=== PATIENT | female | born 1930 | race Caucasian/White ===

== ENCOUNTER 2021-10-24 13:37 | Emergency (ER) | payer OTHER ==
[~2021-10-24] VITALS: Ht 170.2 cm; Wt 57.6 kg
--- NOTE | ~2021-10-24 | EMS ---
[address] [address] EMS Patient Care Report Name: CRYSTAL FINLEY Room #: REG JOHANNA Morgan#: [id number] Admission: 10/24/21 Attend Phys: Discharge: Date of : [birth year] Report #: [id number] THIS REPORT FOR: //name// Report Transmitted: 10/24/2021 20:54 EMS Care Summary [facility] MED-ACT Incident [id number] @ 10/24/2021 12:53 Incident Location [address] [place] [address] Patient CRYSTAL FINLEY Female, 89 Years 1930 Patient Address [address] [place] [address] Patient History Dementia, Patient Allergies Sulfa,Other drug allergy, Patient Medications Donepezil, Naproxen, Loratadine, Acetaminophen, Estradiol, Famotidine, Duloxetine, Spironolactone, Ondansetron, Chief Complaint Increased confusion Disposition Transported No Lights/[place] Dispatch Reason Unconscious/Fainting Transported To [facility] Narrative M1144 found the pt lying in bed with S47 at care. Report from S47 and staff [address] [address] EMS Patient Care Report Name: CRYSTAL FINLEY Room #: REG JOHANNA Morgan#: [id number] Admission: 10/24/21 Attend Phys: Discharge: Date of : [birth year] Report #: [id number] was that the pt has had an increase in confusion and family wanted the pt sent out to the hospital for evaluation. Staff reported that the pt's recently and ever since then the pt's had a decline. Staff stated that they did some labs, sent out for a UA, and did a rapid COVID test and they all came back negative. EMS made contact with the pt's son who stated that the pt is normally "pleasantly demented". He stated that the pt has been calling him and his sister asking where she was, saying that she was in the house that she lived in for 15 years, and talking about old high school friends. Staff also reported that the pt has been calling her asking where she was. The pt stated that she has some hip pain. The pt had no complaints of chest pain, shortness of breath, headaches, blurred vision, nausea/vomiting, Diarrhea, abdominal pain, recent illness, or recent trauma. The pt was transported to [facility] per the pt's son and daughters request. The pt had no new complaints en route and with hand off to [facility] ED RN. The pt was transferred to ED room 5 via a sheet drag from EMS Cot to ED bed. Initial Vitals @13:27P: 85,R: 14,BP: 136/66,Pain: 0/10,SpO2: 94, @13:32P: 89,R: 14,BP: 133/74,SpO2: 93, @13:03P: 94,R: 18,BP: 116/62,GCS: 15,Temp: 98F,Glucose: 84,SpO2: 95,Revised Trauma: 12, Impression Altered Mental Status Procedures @13:02 ALS Assessment Response: UnchangedSucceeded Timeline 12:51,Call Received 12:51,Psap Call 12:53,Dispatched 12:54,En Route 12:58,On Scene 13:01,At Patient 13:02,ALS Assessment,Response: UnchangedSucceeded, 13:03,BP: 116/62 M,PULSE: 94,RR: 18 R,SPO2: 95 Ox,ETCO2: ,B,PAIN: ,GCS: 15, 13:23,Depart Scene 13:27,BP: 136/66 M,PULSE: 85,RR: 14 R,SPO2: 94 Ox,ETCO2: ,BG: ,PAIN: 0,GCS: , 13:32,BP: 133/74 M,PULSE: 89,RR: 14 R,SPO2: 93 Ox,ETCO2: ,BG: ,PAIN: ,GCS: , 13:33,At Destination [address] [address] EMS Patient Care Report Name: CRYSTAL FINLEY KERRICK Room #: REG JOHANNA Hyman.#: [id number] Admission: 10/24/21 Attend Phys: Discharge: Date of : [birth year] Report #: [id number] 13:48,Call Closed Disclaimer v1.1 Copyright 2021 [employer] This EMS Care Summary contains data elements from the applicable legal record (which may be displayed differently). It is designed to provide pertinent information for the following purposes: continuity of care, clinical quality, and state data reporting. The complete legal record is available to ED staff and administrators of the receiving hospital in [facility]'s Patient Tracker. All data is provided "as is."
--- NOTE | ~2021-10-24 | EMS ---
[address] [address] EMS Patient Care Report Name: CRYSTAL FINLEY Room #: REG JOHANNA Morgan#: [id number] Admission: 10/24/21 Attend Phys: Discharge: Date of : [birth year] Report #: [id number] THIS REPORT FOR: //name// Report Transmitted: 10/24/2021 19:51 EMS Care Summary [facility] MED-ACT Incident [id number] @ 10/24/2021 12:53 Incident Location [address] [place] [address] Patient CRYSTAL FINLEY Female, 89 Years 1930 Patient Address [address] [place] [address] Patient History Dementia, Patient Allergies Sulfa,Other drug allergy, Patient Medications Donepezil, Naproxen, Loratadine, Acetaminophen, Estradiol, Famotidine, Duloxetine, Spironolactone, Ondansetron, Chief Complaint Increased confusion Disposition Transported No Lights/[place] Dispatch Reason Unconscious/Fainting Transported To [facility] Narrative M1144 found the pt lying in bed with S47 at care. Report from S47 and staff [address] [address] EMS Patient Care Report Name: CRYSTAL FINLEY Room #: REG JOHANNA Morgan#: [id number] Admission: 10/24/21 Attend Phys: Discharge: Date of : [birth year] Report #: [id number] was that the pt has had an increase in confusion and family wanted the pt sent out to the hospital for evaluation. Staff reported that the pt's recently and ever since then the pt's had a decline. Staff stated that they did some labs, sent out for a UA, and did a rapid COVID test and they all came back negative. EMS made contact with the pt's son who stated that the pt is normally "pleasantly demented". He stated that the pt has been calling him and his sister asking where she was, saying that she was in the house that she lived in for 15 years, and talking about old high school friends. Staff also reported that the pt has been calling her asking where she was. The pt stated that she has some hip pain. The pt had no complaints of chest pain, shortness of breath, headaches, blurred vision, nausea/vomiting, Diarrhea, abdominal pain, recent illness, or recent trauma. The pt was transported to [facility] per the pt's son and daughters request. The pt had no new complaints en route and with hand off to [facility] ED RN. The pt was transferred to ED room 5 via a sheet drag from EMS Cot to ED bed. Initial Vitals @13:27P: 85,R: 14,BP: 136/66,Pain: 0/10,SpO2: 94, @13:32P: 89,R: 14,BP: 133/74,SpO2: 93, @13:03P: 94,R: 18,BP: 116/62,GCS: 15,Temp: 98F,Glucose: 84,SpO2: 95,Revised Trauma: 12, Impression Altered Mental Status Procedures @13:02 ALS Assessment Response: UnchangedSucceeded Timeline 12:51,Call Received 12:51,Psap Call 12:53,Dispatched 12:54,En Route 12:58,On Scene 13:01,At Patient 13:02,ALS Assessment,Response: UnchangedSucceeded, 13:03,BP: 116/62 M,PULSE: 94,RR: 18 R,SPO2: 95 Ox,ETCO2: ,B,PAIN: ,GCS: 15, 13:23,Depart Scene 13:27,BP: 136/66 M,PULSE: 85,RR: 14 R,SPO2: 94 Ox,ETCO2: ,BG: ,PAIN: 0,GCS: , 13:32,BP: 133/74 M,PULSE: 89,RR: 14 R,SPO2: 93 Ox,ETCO2: ,BG: ,PAIN: ,GCS: , 13:33,At Destination [address] [address] EMS Patient Care Report Name: CRYSTAL FINLEY MORRISON Room #: REG JOHANNA Hyman.#: [id number] Admission: 10/24/21 Attend Phys: Discharge: Date of : [birth year] Report #: [id number] 13:48,Call Closed Disclaimer v1.1 Copyright 2021 [employer] This EMS Care Summary contains data elements from the applicable legal record (which may be displayed differently). It is designed to provide pertinent information for the following purposes: continuity of care, clinical quality, and state data reporting. The complete legal record is available to ED staff and administrators of the receiving hospital in [facility]'s Patient Tracker. All data is provided "as is."
[2021-10-24 14:11] LABS: ABSOLUTE NEUTROPHILS 5.7 thou/uL (1.4-8.2); BASOPHILS 1.1 % (0.0-2.0); EOSINOPHILS 2.8 % (0.0-3.0); HEMATOCRIT 32.8 % (37.0-47.0); HEMOGLOBIN 10.9 gm/dL (12.0-15.0); LYMPHOCYTES 13.3 % (24.0-44.0); MCH 35.1 pg (26.0-34.0); MCHC 33.3 g/dL (28.0-37.0); MCV 105.3 fL (80.0-100.0); MONOCYTES 7.2 % (1.0-8.0); PLATELET COUNT 184 thou/uL (150-400); POLYS 75.6 % (36.0-66.0); RBC 3.12 mil/uL (4.20-5.00); RDW 17.4 % (10.5-14.5); WBC 7.6 thou/uL (4.0-11.0)
[2021-10-24 14:31] LABS: ANISOCYTOSIS 2+; MACROCYTES 2+; PLATELET ESTIMATE NORMAL; POLYCHROMASIA SLIGHT
[2021-10-24 14:35] LABS: CREATININE 0.8 mg/dL (0.6-1.0)
[2021-10-24 14:40] LABS: POTASSIUM 3.7 mmol/L (3.5-5.1)
[2021-10-24 16:23] LABS: URINE BILIRUBIN NEGATIVE (Negative); URINE BLOOD 2+ (Negative); URINE CLARITY CLEAR; URINE COLOR YELLOW; URINE GLUCOSE-RANDOM* NEGATIVE (Negative); URINE KETONES NEGATIVE (Negative); URINE LEUKOCYTES-REFLEX NEGATIVE (Negative); URINE NITRITE-REFLEX NEGATIVE (Negative); URINE PROTEIN (DIPSTICK) NEGATIVE (Negative); URINE SPECIFIC GRAVITY 1.025 (1.005-1.035); URINE UROBILINOGEN 0.2 E.U./dl (0.2-1.0)
[2021-10-24 16:42] LABS: CASTS None Seen /LPF (None Seen); SQUAMOUS 4-10 Moderate /LPF (0-3); URINE WBC-REFLEX 0-5 Rare /HPF (0-5)
[2021-10-24 16:43] LABS: BACTERIA-REFLEX 1-9 Few /HPF (None Seen); CRYSTALS None Seen /LPF (None Seen); URINE RBC 3-10 Few /HPF (NONE SEEN)
[2021-10-24] MEDS ORDERED: SPIRONOLACTONE25 MG PO (17:29)
[2021-10-24] MEDS ORDERED: ARICEPT10 MG PO (17:29)
[2021-10-24] MEDS ORDERED: FAMOTIDINE 20 M20 MG PO (17:29)
[2021-10-24] MEDS ORDERED: NAPROSYN500 MG PO (17:30)
[2021-10-25 01:07] VITALS: BP 131/72
--- NOTE | 2021-10-25 09:51 | EKG ---
[place] [address] [email or web address] [address] ELECTROCARDIOGRAM REPORT Name: CRYSTAL FINLEY Room #: [facility] Eddie#: [id number] Admission: 10/24/21 Attend Phys: Discharge: 10/25/21 Date of : [birth year] Report #: [id number] [facility] ED Test Date: 2021-10-24 Test Time: 14:15:27 Pat Name: CRYSTAL FINLEY Department: Room: Gender: F [employer]: : 1930 Requested By: Vamsi Block Order Number: [id number] MD: Wilman Dhaliwal Measurements Intervals [place] Rate: 80 P: 68 [place]: 165 QRS: 47 QRSD: 91 T: 38 QT: 392 QTc: 453 Interpretive Statements Sinus rhythm Low voltage, extremity leads No previous ECG available for comparison Electronically Signed On 10-25-2021 9:51:26 CRTT by Wilman Dhaliwal [email or web address] <ELECTRONICALLY SIGNED> By: Wilman Dhaliwal MD 10/25/21 0951 1415 1415 Wilman Dhaliwal MD /EPI
== END 2021-10-25 01:24 ==
LOC: ER 13:37
PROVIDERS: Student in an Organized Health Care Education/Training Program
DX: R41.0 Disorientation, unspecified (principal); Z20.822 Contact with and (suspected) exposure to COVID-19; N39.0 Urinary tract infection, site not specified; Z88.2 Allergy status to sulfonamides; Z88.8 Allergy status to other drugs, medicaments and biological substances; Z88.5 Allergy status to narcotic agent

== ENCOUNTER 2021-10-25 01:33 | Inpatient (IN) | payer OTHER ==
[2021-10-25 01:08] VITALS: BP 145/71
[~2021-10-25 01:33] MED LIST: ARICEPT10 MG PO; FAMOTIDINE 20 M20 MG PO; NAPROSYN500 MG PO; SPIRONOLACTONE25 MG PO
[2021-10-25 10:39] VITALS: BP 120/56
[2021-10-25 11:09] LABS: CHOLESTEROL 114 mg/dL (<200); HDL CHOLESTEROL 60 mg/dL (>40); LDL CHOLESTEROL 42 mg/dL (<100); TC:HDL 1.9 Ratio (Not establshd); TRIGLYCERIDE 60 mg/dL (<150); VLDL 12 mg/dL (<40)
[2021-10-25 11:56] VITALS: BP 130/58
[2021-10-25 13:14] VITALS: BP 130/58
[2021-10-25 20:00] VITALS: BP 129/51
[2021-10-26 08:48] VITALS: BP 123/57
[2021-10-26 09:18] VITALS: BP 123/57
[2021-10-26 19:25] VITALS: BP 123/57
[2021-10-26 22:06] LABS: ESTIMATED AVERAGE GLUCOSE < 74 mg/dL (()); GLYCOHEMOGLOBIN (HGB A1C) < 4.2 % (4.8-5.6)
[2021-10-27 07:30] VITALS: BP 140/59
[2021-10-27 08:00] VITALS: BP 140/59
[2021-10-27] MEDS ORDERED: DULOXETINE HCL30 MG PO (10:47)
[2021-10-27] MEDS ORDERED: BUSPIRONE HCL5 MG PO (10:47)
[2021-10-27 20:17] VITALS: BP 131/64
== END 2021-10-28 | disposition short-term general hospital (02) | DRG 884 ==
LOC: SBH 01:33
PROVIDERS: Hospitalist; Nurse Practitioner; ADMIT Psychiatry & Neurology Psychiatry; ATTEND Psychiatry & Neurology Psychiatry
PROC: 05HY33Z Insertion of Infusion Device into Upper Vein, Percutaneous Approach (ICD-10-PCS; 2021-10-25)
PROC: 5A0935A Assistance with Respiratory Ventilation, Less than 24 Consecutive Hours, High Flow/Velocity Cannula (ICD-10-PCS; principal; 2021-10-28)
DX: F03.91 Unspecified dementia, unspecified severity, with behavioral disturbance (principal); J18.9 Pneumonia, unspecified organism; N39.0 Urinary tract infection, site not specified; Z20.822 Contact with and (suspected) exposure to COVID-19; Z79.899 Other long term (current) drug therapy; Z88.2 Allergy status to sulfonamides; Z88.8 Allergy status to other drugs, medicaments and biological substances; I95.9 Hypotension, unspecified; M19.90 Unspecified osteoarthritis, unspecified site; Z87.440 Personal history of urinary (tract) infections; F41.9 Anxiety disorder, unspecified
CPT/HCPCS: 10880